=== PATIENT | male | born 1990 | race African-American/Black ===

== ENCOUNTER 2025-08-04 17:12 | Emergency (ER) | payer SELFPAY ==
[2025-08-04] MEDS ORDERED: Lidocaine 1% PF 5 ML VIAL ONE (17:43)
[2025-08-04] MEDS ORDERED: Bacitracin 1 PK ONE (17:43)
[2025-08-04] MEDS ORDERED: Amoxicillin/Potassium Clav 875 MG TAB ONE (20:45)
== END 2025-08-04 21:27 | disposition home or self-care (01) ==
LOC: MADERS 17:12
DX: S61.411A Laceration without foreign body of right hand, initial encounter (principal); S00.531A Contusion of lip, initial encounter; F17.210 Nicotine dependence, cigarettes, uncomplicated; F17.290 Nicotine dependence, other tobacco product, uncomplicated; W26.0XXA Contact with knife, initial encounter; Z23 Encounter for immunization; Z71.6 Tobacco abuse counseling
CPT/HCPCS: 12042; 90471; 90715; 99406